=== PATIENT | male | born 1990 | race Hispanic/Latino ===

== ENCOUNTER 2018-01-26 20:34 | Emergency (ER) | payer MEDICAID ==
[2018-01-26] MEDS ORDERED: SODIUM CHLORIDE 0.9% 1000ML 1,000 ML IV ONE (21:02)
[2018-01-26 21:04] LABS: APPEARANCE,URINE Clear (CLEAR); BILIRUBIN,URINE Negative (NEGATIVE); COLOR,URINE Yellow (YELLOW); GLUCOSE, URINE (UA) Negative (NEGATIVE); KETONES,URINE 15 mg/dL (NEGATIVE); LEUKOCYTE ESTERASE ,URINE Negative (NEGATIVE); NITRATE,URINE Negative (NEGATIVE); OCCULT BLOOD,URINE Negative (NEGATIVE); PROTEIN,URINE Negative (NEGATIVE)
[2018-01-26 21:11] LABS: BASOPHILS % (AUTO) 0.6 % (0.0-5.0); EOSINOPHILS % (AUTO) 2.7 % (0.0-8.0); HEMATOCRIT 39.5 % (42-54); LYMPHOCYTES % (AUTO) 31.9 % (21.0-51.0); MEAN CORPUSCULAR HEMOGLOBIN 29.2 pg (27.0-33.0); MEAN CORPUSCULAR HGB CONC 33.9 g/dL (32.0-36.0); MEAN CORPUSCULAR VOLUME 86.1 fL (79-99); MONOCYTES % (AUTO) 10.2 % (3.0-13.0); NEUTROPHILS % (AUTO) 54.6 % (40.0-77.0); NUCLEATED RED BLOOD CELLS 0.1 % (0.0-0.19); PLATELET COUNT (AUTO) 243 K/uL (130-400); RED BLOOD CELL COUNT(AUTO) 4.58 MIL/uL (4.50-6.20); RED CELL DISTRIBUTION WIDTH 13.7 % (11.0-15.5); WHITE BLOOD COUNT (AUTO) 6.3 K/uL (4.8-10.8)
[2018-01-26 21:49] LABS: ALBUMIN 3.6 g/dL (3.5-5.0); BILIRUBIN,TOTAL 0.4 mg/dL (0.2-1.0)
== END 2018-01-26 22:18 | disposition home or self-care (01) ==
LOC: EDH 20:34
DX: E86.0 Dehydration (principal); M62.82 Rhabdomyolysis
CPT/HCPCS: 36415; 80053; 81003; 82550; 83874 ×2; 85025; 93005; 96360; 99285; J7030

== ENCOUNTER 2018-07-26 03:38 | Emergency (ER) | payer MEDICAID ==
[2018-07-26] MEDS ORDERED: MORPHINE SULFATE 2 MG/ML 1ML SYG ONE (03:55)
[2018-07-26] MEDS ORDERED: LORAZEPAM 2 MG/ML 1 ML VIAL ONE ×5 (03:55→18:35)
[2018-07-26 03:59] LABS: EOSINOPHILS % (AUTO) 3.3 % (0.0-8.0); HEMATOCRIT 36.1 % (42-54); MEAN CORPUSCULAR HEMOGLOBIN 29.5 pg (27.0-33.0); MEAN CORPUSCULAR HGB CONC 33.3 g/dL (32.0-36.0); MEAN CORPUSCULAR VOLUME 88.6 fL (79-99); MONOCYTES % (AUTO) 10.9 % (3.0-13.0); NEUTROPHILS % (AUTO) 41.8 % (40.0-77.0); PLATELET COUNT (AUTO) 238 K/uL (130-400); RED BLOOD CELL COUNT(AUTO) 4.08 MIL/uL (4.50-6.20); RED CELL DISTRIBUTION WIDTH 13.3 % (11.0-15.5); WHITE BLOOD COUNT (AUTO) 5.3 K/uL (4.8-10.8)
[2018-07-26 04:02] LABS: APPEARANCE,URINE Clear (CLEAR); BILIRUBIN,URINE Moderate (NEGATIVE); GLUCOSE, URINE (UA) Negative (NEGATIVE); KETONES,URINE Negative (NEGATIVE); LEUKOCYTE ESTERASE ,URINE Moderate (NEGATIVE); NITRATE,URINE Positive (NEGATIVE); OCCULT BLOOD,URINE Negative (NEGATIVE); PROTEIN,URINE POS 1+ (NEGATIVE)
[2018-07-26 04:07] LABS: COLOR,URINE AMBER (YELLOW)
[2018-07-26 04:11] LABS: AMPHET/METH SCREEN,URINE NEGATIVE (NEGATIVE); BARBITURATE SCREEN, URINE NEGATIVE (NEGATIVE); BENZODIAZEPINES SCREEN,URINE NEGATIVE (NEGATIVE); CANNABINOID SCREEN,URINE NEGATIVE (NEGATIVE); COCAINE SCREEN,URINE NEGATIVE (NEGATIVE); OPIATE SCREEN,URINE POSITIVE (NEGATIVE); PHENCYCLIDINE SCREEN,URINE NEGATIVE (NEGATIVE)
[2018-07-26 04:12] LABS: CREATININE 1.2 mg/dL (0.5-1.5); POTASSIUM 3.6 mmol/L (3.5-5.1)
[2018-07-26 04:18] LABS: BACTERIA,URINE None Seen /HPF (None Seen); MUCUS,URINE Rare LPF (None Seen); RBC,URINE None Seen /HPF (0-1); SQUAMOUS EPITHELIAL CELL,UR Rare /HPF (0-2); WBC,URINE 0-1 /HPF (0-1)
[2018-07-26 04:27] LABS: ALBUMIN 3.5 g/dL (3.5-5.0); BILIRUBIN,TOTAL 0.4 mg/dL (0.2-1.0); TOTAL PROTEIN, SERUM 6.8 g/dL (6.0-8.3)
[2018-07-26] MEDS ORDERED: SODIUM CHLORIDE 0.9% 1000ML 1,000 ML IV ONE (04:55)
[2018-07-26 06:05] LABS: SALICYLATE 2.9 mg/dL (2.8-20.0)
[2018-07-26 06:06] LABS: ACETAMINOPHEN < 1 mcg/mL (10-29); ALCOHOL, BLOOD < 3 mg/dL (0-10)
[2018-07-26] MEDS ORDERED: DiphenhydrAMINE HCL 50 MG/ML VIAL ONE ×3 (06:14→18:03)
[2018-07-26] MEDS ORDERED: HALOPERIDOL LACTATE 5 MG/ML VIAL ONE ×3 (06:15→16:35)
[2018-07-26] MEDS ORDERED: CEFDINIR 250MG/5ML 60ML BOTTLE PO SCH (08:00)
[2018-07-26] MEDS ORDERED: LEVOFLOXACIN 500 MG TABLET ONE (19:49)
[2018-07-26] MEDS ORDERED: PHENAZOPYRIDINE HCL 200 MG TABLET ONE (19:49)
[2018-07-26] MEDS ORDERED: TRAZODONE HCL 50 MG TAB ONE (22:07)
[2018-07-26] MEDS ORDERED: CLONAZEPAM 0.5 MG TABLET ONE (22:08)
[2018-07-26] MEDS ORDERED: BUSPIRONE HCL 5 MG TABLET PO ONE (22:11)
[2018-07-26] MEDS ORDERED: QUETIAPINE FUMARATE 25 MG TAB ONE (22:11)
[2018-07-27] MEDS ORDERED: PHENAZOPYRIDINE HCL 200 MG TABLET ONE ×3 (04:39→20:34)
[2018-07-27] MEDS ORDERED: CLONAZEPAM 0.5 MG TABLET ONE ×3 (05:40→20:34)
[2018-07-27] MEDS ORDERED: BUSPIRONE HCL 5 MG TABLET PO ONE (05:41)
[2018-07-27] MEDS ORDERED: SODIUM CHLORIDE 0.9% 1000ML 1,000 ML IV ONE (06:07)
[2018-07-27] MEDS ORDERED: LORAZEPAM 2 MG/ML 1 ML VIAL ONE ×2 (07:35→14:00)
[2018-07-27 09:16] LABS: CREATININE 1.1 mg/dL (0.5-1.5); POTASSIUM 3.8 mmol/L (3.5-5.1)
[2018-07-27] MEDS ORDERED: BUSPIRONE HCL 5 MG TABLET PO SCH (11:00)
[2018-07-27] MEDS ORDERED: HALOPERIDOL LACTATE 5 MG/ML VIAL ONE (11:52)
[2018-07-27] MEDS ORDERED: LIDOCAINE HCL 2% VISCOUS 15 ML UDCUP ONE (15:12)
[2018-07-27] MEDS ORDERED: ZIPRASIDONE MESYLATE 20 MG/VIAL IM ONE (16:24)
[2018-07-28] MEDS ORDERED: LORAZEPAM 2 MG/ML 1 ML VIAL ONE ×2 (00:59→08:01)
[2018-07-28] MEDS ORDERED: ZIPRASIDONE MESYLATE 20 MG/VIAL IM ONE (01:57)
[2018-07-28] MEDS ORDERED: CLONAZEPAM 0.5 MG TABLET ONE ×2 (06:48→11:24)
[2018-07-28] MEDS ORDERED: PHENAZOPYRIDINE HCL 200 MG TABLET ONE (09:15)
[2018-07-28 09:47] LABS: APPEARANCE,URINE Cloudy (CLEAR); BILIRUBIN,URINE Moderate (NEGATIVE); COLOR,URINE Dark Yellow (YELLOW); GLUCOSE, URINE (UA) Negative (NEGATIVE); KETONES,URINE Negative (NEGATIVE); LEUKOCYTE ESTERASE ,URINE Small (NEGATIVE); NITRATE,URINE Positive (NEGATIVE); OCCULT BLOOD,URINE Negative (NEGATIVE); PH,URINE 5.5 (5.0-8.0); PROTEIN,URINE POS 1+ (NEGATIVE)
[2018-07-28 09:56] LABS: CREATININE 1.2 mg/dL (0.5-1.5)
[2018-07-28 11:01] LABS: HEMATOCRIT 41.2 % (42-54); LYMPHOCYTES % (AUTO) 21.5 % (21.0-51.0); MEAN CORPUSCULAR HEMOGLOBIN 29.7 pg (27.0-33.0); MEAN CORPUSCULAR HGB CONC 33.5 g/dL (32.0-36.0); MEAN CORPUSCULAR VOLUME 88.6 fL (79-99); MONOCYTES % (AUTO) 11.4 % (3.0-13.0); NEUTROPHILS % (AUTO) 64.1 % (40.0-77.0); PLATELET COUNT (AUTO) 308 K/uL (130-400); RED BLOOD CELL COUNT(AUTO) 4.65 MIL/uL (4.50-6.20); RED CELL DISTRIBUTION WIDTH 13.6 % (11.0-15.5)
[2018-07-28 11:06] LABS: BACTERIA,URINE Rare /HPF (None Seen); CALCIUM OXALATE CRYSTALS,UR Moderate /LPF (None Seen); MUCUS,URINE Rare LPF (None Seen); RBC,URINE 0-1 /HPF (0-1); SPERM,URINE Moderate /HPF (None Seen); WBC,URINE 0-1 /HPF (0-1)
[2018-07-28 11:07] LABS: SQUAMOUS EPITHELIAL CELL,UR Few /HPF (0-2)
== END 2018-07-28 14:00 | disposition home or self-care (01) ==
LOC: EDH 03:38
DX: F91.1 Conduct disorder, childhood-onset type (principal); F31.9 Bipolar disorder, unspecified; N48.89 Other specified disorders of penis; R74.8 Abnormal levels of other serum enzymes; M54.5 Low back pain; F41.9 Anxiety disorder, unspecified
CPT/HCPCS: 36415 ×3; 76770; 76870; 80048 ×2; 80053; 80305; 81001 ×2; 82550 ×2; 83874; 85025 ×2; 87088; 87486; 87797; 93005; 96372; 96374; 96375; 96376; 99285; G0480 ×2; G0481; J1200 ×3; J1630 ×3; J2060 ×5; J7030; A4218; J3486

== ENCOUNTER 2025-08-24 20:42 | Emergency (ER) | payer MEDICAID ==
[~2025-08-24] VITALS: Ht 172.7 cm; Wt 95.3 kg
[2025-08-24 20:44] VITALS: BP 114/68; PULSE 110; RESP 20; TEMP 98.1
[2025-08-24] MEDS ORDERED: HYDR100C2 PO (20:53)
--- NOTE | 2025-08-24 20:54 | ERN ---
ED Note History of Present Illness Stated Complaint: ANXIETY ATTACK Chief Complaint: Anxiety/Panic Attack Time Seen by MD: 20:48 Dictation: PATIENT IS A 34-YEAR-OLD MALE COMING FROM A LOCAL [facility] VIA EMS. PER EMS, PATIENT'S ONLY COMPLAINT IS THAT THERE IS A CLIENT IN THE HOME WHO YELLS ALL THE TIME AND HE CAN NOT SLEEP AND HE SAID IT IS DRIVING HIM CRAZY. WHEN I ASKED THE PATIENT THIS HE SAID HE AGREED. HE DOES NOT HAVE ANY THOUGHTS OF HURTING HIMSELF OR ANYBODY ELSE. HE JUST WANTS TO BE ABLE TO SLEEP. Allergies: Coded Allergies: No Known Drug Allergies (Verified Allergy, Unknown, 07/26/18) Past Medical History Past Medical History: Anxiety Surgical History: None Review of System Dictation CONSTITUTIONAL: NEGATIVE EXCEPT FOR HPI HEAD/FACE: NEGATIVE EXCEPT FOR HPI EENT: NEGATIVE EXCEPT FOR HPI RESPIRATORY: NEGATIVE EXCEPT FOR HPI GASTROINTESTINAL/ABDOMINAL: NEGATIVE EXCEPT FOR HPI GENITOURINARY: NEGATIVE EXCEPT FOR HPI MUSCULOSKELETAL: NEGATIVE EXCEPT FOR HPI INTEGUMENTARY: NEGATIVE EXCEPT FOR HPI NEUROLOGICAL/PSYCH: NEGATIVE EXCEPT FOR HPI ANXIETY HEMATOLOGIC/LYMPHATIC: NEGATIVE EXCEPT FOR HPI ALL SYSTEMS NEGATIVE, EXCEPT NOTED ABOVE. 13 POINT REVIEW OF SYSTEMS ASSESSED AND ALL NEGATIVE EXCEPT FOR ABOVE. Initial Vital Sign VS Vital Signs Date Time Temp Pulse Resp B/P (MAP) Pulse Ox O2 Delivery O2 Flow Rate FiO2 08/24/25 20:44 98.1 110 20 114/68 99 Room Air 0 Physical Exam Dictation VITAL SIGNS REVIEWED GENERAL APPEARANCE: ALERT, ORIENTED X 3, NO ACUTE DISTRESS, WELL DEVELOPED, NOURISHED. BLUNTED AFFECT AND APPEARS TO HAVE AUTISM HEAD AND FACE: NON-TRAUMATIC. EYES: PERRL, PINK CONJUNCTIVAS, EYELID NO TRAUMA, ANTERIOR CHAMBER WITH ARCUS SENILIS. EARS: PINNAS INTACT AND NO SIGNS OF TRAUMA OR ERYTHEMA EAR CANALS CLEAR AND NO DISCHARGE TM NO ERYTHEMA NOSE: NO DISCHARGE, NO BLEEDING. OROPHARYNX: MOUTH NORMAL, TONGUE PINK, PHARYNX CLEAR,NO ERYTHEMA, TONSILS NO EXUDATES, NO ABSCESSES NOTED, MUCOUS MEMBRANE MOIST NECK: SUPPLE, NON-TENDER, NO THYROMEGALY, NO MASSES, NO JVD, NO BRUITS BREAST:DEFERRED CHEST:NO TENDERNESS, NO CREPITUS, NO PARADOXICAL MOVEMENT, NO RETRACTIONS LUNGS:CLEAR, WELL-VENTILATED, SYMMETRIC, NO RALES, NO WHEEZING, NO RHONCHI, NO STRIDOR, GOOD BREATH SOUNDS BILATERALLY HEART: REGULAR RATE, REGULAR RHYTHM, NO MURMUR, NO GALLOPS VASCULAR: NO PERIPHERAL EDEMA, ABDOMEN: SOFT, POSITIVE BOWEL SOUNDS, NONDISTENDED, NO GUARDING, NONTENDER, NO REBOUND, NO MASSES NO HEPATOMEGALY, NO SPLENOMEGALY, NO LOJA'S SIGN, NO HERNIAS. RECTAL: DEFERRED GENITAL: DEFERRED NEUROLOGICAL: NORMAL SPEECH, MOTOR FUNCTION INTACT, SENSORY FUNCTION INTACT MUSCULOSKELETAL: NECK NONTENDER, FULL RANGE OF MOTION, BACK NONTENDER, FULL RANGE OF MOTION, EXTREMITIES: NONTENDER, FULL RANGE OF MOTION SKIN: COLOR PINK, DRY, NO TURGOR, NO RASH, NO LACERATIONS, NO ABRASIONS, NO CONTUSIONS. LYMPHATIC: DEFERRED Results (Laboratory/Radiology) Labs Reviewed?: Yes ED Course ED Course Orders Procedure Category Date Status Time Diazepam 5mg Tab PHA 08/24/25 Transmitted (Valium 5 Mg Tab) 21:00 Diazepam 5mg Tab PHA 08/24/25 Transmitted (Valium 5 Mg Tab) 21:00 Vital Signs Date Time Temp Pulse Resp B/P (MAP) Pulse Ox O2 Delivery O2 Flow Rate FiO2 08/24/25 20:44 98.1 110 20 114/68 99 Room Air 0 2050/NO LABS OR IMAGING INDICATED. WE WILL PROVIDE PATIENT WITH SOME VALIUM HERE FOR RELAXATION WE WILL DISCHARGE PATIENT HOME WITH HYDROXYZINE 50 MG Q8 HOURS P.R.N. ANXIETY OR INSOMNIA HAVE HIM SEE HIS DOCTOR AT THE [facility] Medical Decision Making MDM MEDICAL DECISION-MAKING BASED ON EMPIRIC TREATMENT FOR ANXIETY REACTION. PATIENT GIVEN VALIUM5 MG P.O. HERE DISCHARGED HOME WITH HYDROXYZINE 50 MG P.O. Q8 HOURS PRN INSOMNIA OR ANXIETY INSTRUCTED TO SEE HIS PRIMARY CARE DOCTOR DX & DISP Disposition: Discharge Departure Impression: Primary Impression: Anxiety in acute stress reaction Condition: Stable Scripts Hydroxyzine Pamoate (Hydroxyzine Pamoate) 100 Mg Capsule 100 MG PO Q8 for ANXIETY /INSOMNIA, #30 CAP Prov: SAEID GOMEZ MACHINE FELLER 08/24/25 Additional Instructions: FOLLOW-UP WITH PRIMARY CARE PROVIDER IN 1 TO 2 DAYS. TAKE MEDICATIONS DIRECTED HERE IN THE EMERGENCY ROOM. OKAY TO CONTINUE HOME MEDICATIONS UNLESS OTHERWISE DISCUSSED DURING YOUR VISIT IN THE EMERGENCY ROOM TODAY. RETURN TO YOUR NEAREST EMERGENCY ROOM IF SYMPTOMS WORSEN OR IF THERE IS NO IMPROVEMENT. CALL 911 IF YOU NEED IMMEDIATE ASSISTANCE. TAKE TYLENOL OR MOTRIN [id number] NEEDED AND IF NO CONTRAINDICATIONS ARE PRESENT. INCREASE ORAL HYDRATION. A WOUND CULTURE OR URINE CULTURE WAS ORDERED HERE IN THE EMERGENCY ROOM DEPARTMENT PLEASE FOLLOW-UP WITH PRIMARY CARE PROVIDER AND ADVISE THEM TO GET REPEAT PORTS FROM OUR FACILITY. IF YOU HAD ANY BRENDA WRAP/SPLINTS THAT WERE APPLIED HERE, PLEASE DO NOT REMOVE THEM UNTIL YOU SEE YOUR PRIMARY CARE OR SPECIALTY. TAKE HYDROXYZINE DIRECTED FOR INSOMNIA OR ANXIETY. FOLLOW UP WITH YOUR [facility] DOCTOR IN THE NEXT 1-2 DAYS. MEDICALLY CLEARED TO RETURNED TO [facility] Referrals: LEEANNE HA MD (PCP) Time of Disposition: 20:52 I have reviewed the case, and I agree with, Diagnosis and Plan SAEID GOMEZ MACHINE FELLER Aug 24, 2025 20:54
[2025-08-24] MEDS ORDERED: diazePAM 5 MG TAB PO ONE (21:00)
[2025-08-24] MEDS: diazePAM 5 MG TAB PO ONE (21:00)
== END 2025-08-24 21:08 | disposition home or self-care (01) ==
LOC: EDH 20:42
DX: F41.1 Generalized anxiety disorder (principal); F43.0 Acute stress reaction
CPT/HCPCS: 99283